=== PATIENT | female | born 1975 | race Caucasian/White ===

== ENCOUNTER 2023-07-02 19:42 | Emergency (ER) | payer MEDICAID ==
[2023-07-02 23:27] LABS: CORONAVIRUS COVID-19 NAA NEGATIVE (NEGATIVE); INFLUENZA A NAA NEGATIVE (NEGATIVE); INFLUENZA B NAA NEGATIVE (NEGATIVE); RESPIRATORY SYNCYTIAL VIR NAA NEGATIVE (NEGATIVE)
== END 2023-07-03 00:52 | disposition home or self-care (01) ==
LOC: JP.ED 19:42
DX: J01.90 Acute sinusitis, unspecified (principal); F17.210 Nicotine dependence, cigarettes, uncomplicated; Z20.822 Contact with and (suspected) exposure to COVID-19; Z88.2 Allergy status to sulfonamides
CPT/HCPCS: 0241U; 99283